=== PATIENT | male | born 1935 | race Caucasian/White ===

== ENCOUNTER → 2016-06-24 | Outpatient (CLI) | payer BC ==
[~2016-06-24] MED LIST: ASPI-232 PO; ATOR-54 PO; BROM0.07 OPL; COLE1TAB5 PO; FURO40TA3 PO; ISOS30TA35 PO; METHPOW PO; METO-452 PO; NTRGSL/4 UT; PRED1SUS3 OPR
--- NOTE | 2016-07-18 13:51 | CODING QUERY MEDICAL NECESSITY ---
SUPPORTING DIAGNOSIS NEEDED A supporting diagnosis is required for the test/procedure performed on this patient in order for us to be reimbursed by the patient's insurance. Please provide a supporting diagnosis for the following test/procedure listed below next to the test name along with your signature. *If there is no additional diagnosis for this patient that would support the following test/procedure please document that below next to the test/procedure. Test(s)/Procedure(s) that require a supporting diagnosis: DOS 06/24 * Bone Density Study DIAGNOSIS: Provider Signature: Date: Thank you Tonja Medel Health Information Management Once completed, please kindly fax back to [phone] For questions please call [phone]
== END | disposition home or self-care (01) ==
LOC: C.MAMM 07:50
PROVIDERS: ATTEND Family Medicine
DX: R29.890 Loss of height (principal); M85.80 Other specified disorders of bone density and structure, unspecified site

== ENCOUNTER → 2016-07-05 | Day surgery (SDC) | payer BC ==
[2016-06-16 08:50] VITALS: Ht 166.4 cm; Wt 100.0 kg
[~2016-07-05] VITALS: Ht 166.4 cm; Wt 100.0 kg
[~2016-07-05] MED LIST changes: +500ML BSS 0.3ML EPI 1:1000PF IRRIG ONE; +AMVISC PLUS 0.8ML SYRINGE INT OCU ONE; +ATROPINE SULFATE 0.1 MG/ML 5ML SYR IV PRN; +BSS FLUSH ONE; +EpHEDrine SULFATE INJ 50 MG/ML AMP IV PRN; +EpINEphrine INJ 1MG/ML AMP 1 MG/ML AMP ONE; +LACTATED RINGER'S 1000ML 500 ML IV SCH; +LIDOCAINE 3.5% OPH GEL PER APPLICATION CHARGE ONE; +LIDOCAINE HCL 1% MPF 2 ML VIAL ONE; +MIDAZOLAM HCL 1 MG/ML 2ML VIAL ONE; +OCUCOAT 1 ML SOLN IO ONE; +PHENYLEPHRINE HCL 10% OP SOLN PER DROP CHARGE OPR SCH; +POVIDONE-IODINE OP SOLN 30 ML BTL ONE; +PROPARACAINE 0.5% OP SOLN PER DROP CHARGE OPR SCH; +TOBRAMYCIN/DEXAMETHASONE OPH OINT PER APPLN CHARGE ONE
[2016-07-05] MEDS: PHENYLEPHRINE HCL 2.5% OP SOLN PER DROP CHARGE OPR SCH ×2 (08:51→08:56)
[2016-07-05] MEDS: TROPICAMIDE 1% OP SOLN PER DROP CHARGE OPR SCH ×2 (08:52→08:57)
[2016-07-05] MEDS: CYCLOPENTOLATE HCL 1% OP SOLN PER DROP CHARGE OPR SCH ×2 (08:53→08:58)
[2016-07-05] MEDS: KETOROLAC 0.5% OP SOLN PER DROP CHARGE OPR SCH ×2 (08:54→08:59)
[2016-07-05] MEDS: GATIFLOXACIN OP SOLN PER DROP CHARGE OPR SCH ×2 (08:55→09:05)
--- NOTE | 2016-07-05 09:32 | History & Physical Bridge - [place] ---
H&P Re-Evaluation Bridge Note: I have examined the patient, reviewed the History & Physical and in the interval since the performance of the History & Physical I have noted the following changes of clinical significance: Diagnosis: Right Cataract Procedure: Right Cataract Removal with Lens Implant No changes noted
--- NOTE | 2016-07-05 10:19 | DIAGNOSTIC IMAGING REPORT ---
SINGLE VIEW CHEST CLINICAL HISTORY: Cough. FINDINGS: An AP, portable, upright chest radiograph is compared to study dated 04/23/2015. The examination is degraded by portable technique and patient rotation. The heart is enlarged. The pulmonary vasculature is noncongested. Bibasilar atelectasis is observed. No airspace consolidation, large pleural effusion, or pneumothorax is seen. The skeletal structures are osteopenic. The bony thorax is grossly intact. IMPRESSION: Cardiomegaly with no acute cardiopulmonary abnormality. Electronically signed by: Memo Antonio M.D. 07/05/2016 10:16 AM Dictated Date/Time: 07/05/2016 10:16 AM
[2016-07-05 10:47] VITALS: TEMP 36.5
--- NOTE | 2016-07-05 10:47 | [facility] Operative Report ---
Operative Report Date of Service Jul 05, 2016. Operative Report 1. PREOPERATIVE DIAGNOSIS: Cataract of the right eye. 2. POSTOPERATIVE DIAGNOSIS: Same. 3. PROCEDURE: Phacoemulsification with intraocular lens implantation of the right eye. SURGEON: Dr. Robby Amin. ANESTHESIA: Topical Lidocaine gel, 1% Non- Preserved intracameral Lidocaine, and monitored intravenous sedation. INDICATIONS FOR THE PROCEDURE: The patient is a 80 - year-old male with a history of cataract of the right eye causing significant visual impairment. The details of the proposed procedure were explained to the patient who asked appropriate questions and following discussion of all risks, benefits and alternatives agreed to have the procedure done. 4. OPERATION AND FINDINGS: DESCRIPTION OF PROCEDURE: After informed consent was obtained, the patient was brought to the Operating Room at the [facility]. The patient was placed in a supine position and then the right eye was prepped and draped in the usual sterile fashion for intraocular surgery. A drop of topical Lidocaine gel was placed in the operative eye. A wire lid speculum was then placed in the fornices. A corneal paracentesis was then created temporally. The Non-Preserved Lidocaine was then instilled into the anterior chamber. The anterior chamber was then pressurized with viscoelastic. A 2.0 mm clear corneal incision was then created temporally. A cystotome was inserted into the anterior chamber and used to create a tear in the anterior lens capsule. This capsular tear was then used to create a small flap and the flap was dragged in a counterclockwise direction in order to create a continuous curvilinear capsulorrhexis. Hydrodissection was accomplished with balanced salt solution. Phacoemulsification of the lens nucleus was then performed in a standard [id number]-[id number] technique. The phaco time was 31 seconds with an average power of 10 %. The remaining cortical material was removed using irrigation aspiration. The capsular bag was then filled with viscoelastic. A Bausch & Lomb MI60L +24.0 diopters lens was then loaded into the injector and injected into the capsular bag. The remaining viscoelastic was removed with the irrigation aspiration handpiece. The wound was hydrated and then checked and found to be watertight. The intraocular pressure was checked and found to be adequate. The wire lid speculum was removed and the patient's face was cleaned and dried. TobraDex ointment was placed in the inferior fornix. The patient was discharged to the Recovery Room having tolerated the procedure well. There were no complications. The patient will be seen tomorrow in the office for follow-up. I attest to the content of the Intraoperative Record and any orders documented therein. Any exceptions are noted below.
--- NOTE | 2016-07-05 10:47 | Discharge Instructions-SurgCtr ---
Discharge Instructions Date of Service Jul 05, 2016. Visit Reason for Visit: Cataract Right Eye Discharge Discharge Diagnosis / Problem: cataract Discharge Goals Goal(s): Improve function Activity Recommendations Activity Limitations: per Instructions/Follow-up section Anesthesia . Post Anesthesia Instructions: If you have had General Anesthesia or IV Sedation: * Do not drive today. * Resume driving when surgeon permits. * Do not make important decisions or sign legal documents today. * Call surgeon for: 1. Temperature elevations greater than 101 degrees F. 2. Uncontrollable pain. 3. Excessive bleeding. 4. Persistent nausea and vomiting. 5. Medication intolerance (nausea, vomiting or rash). * For nausea and vomiting use only clear liquids such as: tea, soda, bouillon until nausea subsides, then gradually increase diet as tolerated. * If you have any concerns or questions, call your surgeon's office. If physician is unavailable and it is an emergency, call 911 or go to the nearest emergency room. . Instructions / Follow-Up Instructions / Follow-Up ACTIVITY RECOMMENDATIONS: * No strenuous lifting, jogging or running for 4 days * No swimming or yard work for 1 week. * Limited bending is permitted, such as putting on shoes. RETURN TO SCHOOL/WORK: No work until seen by physician in office. MEDICATIONS: Resume previous medications unless instructed otherwise by your surgeon. This includes eye drops for glaucoma. Zymaxid/Gatifloxacin (morgan cap) - one drop every 2 hours until bedtime Nevanac/Ilevro/Prolensa/Ketorolac (oliver cap) - one drop every 4 hours until bedtime Prednisolone (white/pink cap, SHAKE WELL) - one drop every 2 hours until bedtime Starting tomorrow - all 3 drops every 4 hours until seen in the office Optive drops - as needed for discomfort SPECIAL CARE INSTRUCTIONS: * Wear eyeshield when sleeping, for four nights. * You may wear your own glasses or sunglasses while awake. * You may read or watch TV * You may shower and wash your face, but be gentle around the eye and pat dry. * Blurry vision and mild irritation are normal. * Call office if pain is more severe or vision becomes dark at . FOLLOW UP VISIT: Follow-up with Dr Amin tomorrow. Diet Recommendations Home Diet: resume previous diet Procedures Procedures Performed: Right Cataract Phacoemulsification With Intraocular Lens Implant Pending Studies Studies pending at discharge: no Medical Emergencies . Who to Call and When: Medical Emergencies: If at any time you feel your situation is an emergency, please call 911 immediately. . Non-Emergent Contact Non-Emergency issues call your: [facility] Pharmacy Technician . . "Provider Documentation" section prepared by Robby Amin.
[2016-07-05 11:15] VITALS: BP 154/80; PULSE 56; O2SAT 98
--- NOTE | 2016-07-05 11:20 | Anesthesia Progress Nt - [facility] ---
Anesthesia Post Op Note Date & Time Jul 05, 2016 at 11:19 Vital Signs Pain Intensity: 0 Vital Signs Past 12 Hours Date Time Temp Pulse Resp B/P Pulse Ox O2 Delivery O2 Flow Rate FiO2 07/05/16 11:15 56 18 154/80 98 Room Air 07/05/16 10:47 36.5 76 16 119/67 98 Room Air 07/05/16 08:48 36.4 72 18 144/80 96 Room Air Notes Mental Status: alert / awake / arousable, participated in evaluation Pt Amnestic to Procedure: Yes Nausea / Vomiting: adequately controlled Pain: adequately controlled Airway Patency, RR, SpO2: stable & adequate BP & HR: stable & adequate Hydration State: stable & adequate Anesthetic Complications: no major complications apparent
== END | disposition home or self-care (01) ==
LOC: X.SURG 08:28
PROVIDERS: ATTEND Ophthalmology
DX: H26.9 Unspecified cataract (principal); H54.7 Unspecified visual loss; I10 Essential (primary) hypertension; M54.16 Radiculopathy, lumbar region; I45.10 Unspecified right bundle-branch block; M19.90 Unspecified osteoarthritis, unspecified site; G47.33 Obstructive sleep apnea (adult) (pediatric); I25.10 Atherosclerotic heart disease of native coronary artery without angina pectoris; E78.5 Hyperlipidemia, unspecified

== ENCOUNTER → 2016-08-02 | Day surgery (SDC) | payer BC ==
[2016-07-14 11:21] VITALS: Ht 166.4 cm; Wt 100.0 kg
[~2016-08-02] VITALS: Ht 166.4 cm; Wt 100.0 kg
[~2016-08-02] MED LIST changes: -ATROPINE SULFATE 0.1 MG/ML 5ML SYR IV PRN; -EpHEDrine SULFATE INJ 50 MG/ML AMP IV PRN; +PHENYLEPHRINE HCL 10% OP SOLN PER DROP CHARGE OPL SCH; -PHENYLEPHRINE HCL 10% OP SOLN PER DROP CHARGE OPR SCH; +PROPARACAINE 0.5% OP SOLN PER DROP CHARGE OPL SCH; -PROPARACAINE 0.5% OP SOLN PER DROP CHARGE OPR SCH
[2016-08-02] MEDS: PHENYLEPHRINE HCL 2.5% OP SOLN PER DROP CHARGE OPL SCH ×2 (09:27→09:37)
[2016-08-02] MEDS: TROPICAMIDE 1% OP SOLN PER DROP CHARGE OPL SCH ×2 (09:28→09:38)
[2016-08-02] MEDS: CYCLOPENTOLATE HCL 1% OP SOLN PER DROP CHARGE OPL SCH ×2 (09:29→09:39)
[2016-08-02] MEDS: KETOROLAC 0.5% OP SOLN PER DROP CHARGE OPL SCH ×2 (09:30→09:40)
[2016-08-02] MEDS: GATIFLOXACIN OP SOLN PER DROP CHARGE OPL SCH ×2 (09:30→09:41)
--- NOTE | 2016-08-02 09:30 | History & Physical Bridge - [place] ---
H&P Re-Evaluation Bridge Note: I have examined the patient, reviewed the History & Physical and in the interval since the performance of the History & Physical I have noted the following changes of clinical significance: No changes noted
--- NOTE | 2016-08-02 10:10 | Discharge Instructions-SurgCtr ---
Discharge Instructions Date of Service August 02, 2016. Visit Reason for Visit: Cataract Left Eye Discharge Discharge Diagnosis / Problem: cataract Discharge Goals Goal(s): Improve function Activity Recommendations Activity Limitations: per Instructions/Follow-up section Anesthesia . Post Anesthesia Instructions: If you have had General Anesthesia or IV Sedation: * Do not drive today. * Resume driving when surgeon permits. * Do not make important decisions or sign legal documents today. * Call surgeon for: 1. Temperature elevations greater than 101 degrees F. 2. Uncontrollable pain. 3. Excessive bleeding. 4. Persistent nausea and vomiting. 5. Medication intolerance (nausea, vomiting or rash). * For nausea and vomiting use only clear liquids such as: tea, soda, bouillon until nausea subsides, then gradually increase diet as tolerated. * If you have any concerns or questions, call your surgeon's office. If physician is unavailable and it is an emergency, call 911 or go to the nearest emergency room. . Instructions / Follow-Up Instructions / Follow-Up ACTIVITY RECOMMENDATIONS: * No strenuous lifting, jogging or running for 4 days * No swimming or yard work for 1 week. * Limited bending is permitted, such as putting on shoes. RETURN TO SCHOOL/WORK: No work until seen by physician in office. MEDICATIONS: Resume previous medications unless instructed otherwise by your surgeon. This includes eye drops for glaucoma. Zymaxid/Gatifloxacin (morgan cap) - one drop every 2 hours until bedtime Nevanac/Ilevro/Prolensa/Ketorolac (oliver cap) - one drop every 4 hours until bedtime Prednisolone (white/pink cap, SHAKE WELL) - one drop every 2 hours until bedtime Starting tomorrow - all 3 drops every 4 hours until seen in the office Optive drops - as needed for discomfort SPECIAL CARE INSTRUCTIONS: * Wear eyeshield when sleeping, for four nights. * You may wear your own glasses or sunglasses while awake. * You may read or watch TV * You may shower and wash your face, but be gentle around the eye and pat dry. * Blurry vision and mild irritation are normal. * Call office if pain is more severe or vision becomes dark at . FOLLOW UP VISIT: Follow-up with Dr Amin tomorrow. Diet Recommendations Home Diet: resume previous diet Procedures Procedures Performed: Left Cataract Phacoemulsification With Intraocular Lens Implant Pending Studies Studies pending at discharge: no Medical Emergencies . Who to Call and When: Medical Emergencies: If at any time you feel your situation is an emergency, please call 911 immediately. . Non-Emergent Contact Non-Emergency issues call your: Emergency Medicine Nurse Practitioner . . "Provider Documentation" section prepared by Robby Amin. .
--- NOTE | 2016-08-02 10:10 | [facility] Operative Report ---
Operative Report Date of Service August 02, 2016. Operative Report 1. PREOPERATIVE DIAGNOSIS: Cataract of the left eye. 2. POSTOPERATIVE DIAGNOSIS: Same. 3. PROCEDURE: Phacoemulsification with intraocular lens implantation of the left eye. SURGEON: Dr. Robby Amin. ANESTHESIA: Topical Lidocaine gel, 1% Non- Preserved intracameral Lidocaine, and monitored intravenous sedation. INDICATIONS FOR THE PROCEDURE: The patient is a 80 - year-old male with a history of cataract of the left eye causing significant visual impairment. The details of the proposed procedure were explained to the patient who asked appropriate questions and following discussion of all risks, benefits and alternatives agreed to have the procedure done. 4. OPERATION AND FINDINGS: DESCRIPTION OF PROCEDURE: After informed consent was obtained, the patient was brought to the Operating Room at the [facility]. The patient was placed in a supine position and then the left eye was prepped and draped in the usual sterile fashion for intraocular surgery. A drop of topical Lidocaine gel was placed in the operative eye. A wire lid speculum was then placed in the fornices. A corneal paracentesis was then created temporally. The Non-Preserved Lidocaine was then instilled into the anterior chamber. The anterior chamber was then pressurized with viscoelastic. A 2.0 mm clear corneal incision was then created temporally. A cystotome was inserted into the anterior chamber and used to create a tear in the anterior lens capsule. This capsular tear was then used to create a small flap and the flap was dragged in a counterclockwise direction in order to create a continuous curvilinear capsulorrhexis. Hydrodissection was accomplished with balanced salt solution. Phacoemulsification of the lens nucleus was then performed in a standard [id number]-nai-melokzj technique. The phaco time was 26 seconds with an average power of 15 %. The remaining cortical material was removed using irrigation aspiration. The capsular bag was then filled with viscoelastic. A Bausch & Lomb MI60L +22.5 diopters lens was then loaded into the injector and injected into the capsular bag. The remaining viscoelastic was removed with the irrigation aspiration handpiece. The wound was hydrated and then checked and found to be watertight. The intraocular pressure was checked and found to be adequate. The wire lid speculum was removed and the patient's face was cleaned and dried. TobraDex ointment was placed in the inferior fornix. The patient was discharged to the Recovery Room having tolerated the procedure well. There were no complications. The patient will be seen tomorrow in the office for follow-up. I attest to the content of the Intraoperative Record and any orders documented therein. Any exceptions are noted below.
[2016-08-02 10:11] VITALS: TEMP 36.4
--- NOTE | 2016-08-02 10:26 | Anesthesia Progress Nt - [facility] ---
Anesthesia Post Op Note Date & Time August 02, 2016 at 10:26 Vital Signs Pain Intensity: 0 Vital Signs Past 12 Hours Date Time Temp Pulse Resp B/P Pulse Ox O2 Delivery O2 Flow Rate FiO2 08/02/16 10:11 36.4 57 16 140/79 97 Room Air 08/02/16 09:07 36.5 67 16 150/72 97 Room Air Notes Mental Status: alert / awake / arousable, participated in evaluation Pt Amnestic to Procedure: No (recall as expected) Nausea / Vomiting: adequately controlled Pain: adequately controlled Airway Patency, RR, SpO2: stable & adequate BP & HR: stable & adequate Hydration State: stable & adequate Anesthetic Complications: no major complications apparent Pt doing well.
[2016-08-02 10:35] VITALS: BP 140/70; PULSE 58; O2SAT 96
== END | disposition home or self-care (01) ==
LOC: X.SURG 08:37
PROVIDERS: ATTEND Ophthalmology
DX: H26.9 Unspecified cataract (principal); G47.33 Obstructive sleep apnea (adult) (pediatric); H91.90 Unspecified hearing loss, unspecified ear

== ENCOUNTER 2021-12-17 00:43 | Observation (INO) ==
[2021-12-17 01:13] LABS: Basophils # (auto) 0.06 K/uL (0-0.2); Basophils % (auto) 0.8 %; Eosinophils # (auto) 0.22 K/uL (0-0.50); Eosinophils % (auto) 2.9 %; Hematocrit (blood only) 40.2 % (40.1-51.0); Immature Granulocytes # (auto) 0.02 K/uL (0.00-0.02); Immature Granulocytes % (auto) 0.3 %; Lymphocytes # (auto) 2.74 K/uL (1.2-3.4); Lymphocytes % (auto) 36.5 %; Mean Corpuscular Hemoglobin 30.9 pg (25.0-34.0); Mean Corpuscular Hgb Conc 32.3 g/dL (32.0-36.0); Mean Corpuscular Volume 95.5 fL (80.0-100.0); Monocytes # (auto) 0.64 K/uL (0.24-0.82); Monocytes % (auto) 8.5 %; Neutrophils # (auto) 3.82 K/uL (1.4-6.5); Platelet Count 200 K/uL (130-400); RDW Coefficient of Variation 13.4 % (11.5-14.5); RDW Standard Deviation 47.3 fL (36.4-46.3); Red Blood Count 4.21 M/uL (4.63-6.08)
--- NOTE | 2021-12-17 01:27 | Emergency Department Note ---
History of Present Illness General Chief complaint: Chest Pain Stated complaint: CHEST PAIN - SUDDEN ONSET; DIZZINESS Time Seen by Provider: 12/17/21 00:56 History of Present Illness This 86-year-old with prior heart disease presents to the ER complaining of chest pain that is now resolved Location: Chest Quality: Discomfort Severity: Moderate Duration: Tonight Timing: Tonight Context: Patient was concerned and came in Modifying factors: better with asa; worse with nothing Patient states he feels better now. He had a heart attack greater than 30 years ago. Patient states has had intermittent dizziness for quite some time. None currently. Patient denies dyspnea, radiating pain, abdominal pain, fever, chills, numbness, tingling, localized weakness. He is extremely hard of hearing. Home Medications Medication Instructions Recorded Confirmed Type atorvastatin 10 mg tablet 10 mg PO QAM 09/16/19 07/27/21 History levothyroxine 88 mcg capsule 88 mcg PO DAILY 04/13/21 07/27/21 History aspirin 81 mg tablet,delayed 81 mg PO QAM 06/25/21 07/27/21 History release (Tracie Low Dose Aspirin) propranolol 60 mg capsule,24 60 mg PO DAILY 06/25/21 07/27/21 History hr,extended release pantoprazole 40 mg tablet,delayed 40 mg PO DAILY #30 tabs 07/13/21 07/27/21 Rx release Allergies Allergy/AdvReac Type Severity Reaction Status Date / Time atorvastatin Allergy Intermediate BOWEL Verified 07/27/21 09:33 LEAKAGE egg AdvReac Mild DIARRHEA Verified 07/27/21 09:33 monosodium glutamate AdvReac Mild DIARRHEA Verified 07/27/21 09:33 olive oil AdvReac Mild DIARRHEA Verified 07/27/21 09:33 Past Med/Surg History Medical History (Updated 12/17/21 @ 03:24 by Marielena Henao PA-C) Diverticulosis of colon without diverticulitis hx of, ruptured bowel Esophageal reflux Hearing deficit History of ASCVD Hyperlipidemia Hypertension Hypertrophy (benign) of 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 Clifford Osteoarthritis Sinus drainage Sleep apnea does not use CPAP as ordered Surgical History Hip joint replacement status right hip History of bilateral cataract extraction History of cardiac cath 2009 @ [facility] [place], no stents History of colonoscopy with polypectomy History of colostomy reversal 1986 History of esophagogastroduodenoscopy (EGD) History of hernia repair umbilical History of tonsillectomy and adenoidectomy History of tooth extraction all teeth removed S/P cholecystectomy Status post partial colectomy with colostomy Family History Father No significant family history Mother No significant family history History of anesthesia reaction difficulty waking Family/Other Family history of esophageal cancer cousin Denies family history of Clotting disorder Social History Smoking Status: Former smoker Second Hand Exposure: Yes (mom smoked); Hx Alcohol Use: Yes Alcohol type: wine Hx Substance Use: No Preferred Language: Pashto Communication Ability: Effective Firewall Administrator Required: No Beliefs That Will Affect Care: None marital status: Current Living Situation: Spouse current occupational status: retired Feels Safe at Home: Yes Assistive Devices: Cane, Denture - Upper, Denture - Lower, Glasses and Hearing Aid - Bilateral Review of Systems A total of 10 systems reviewed and were otherwise negative Physical Exam Vital Signs Vital Signs - 24 hr 12/17/21 01:00 12/17/21 01:00 12/17/21 01:00 Temperature 36.5 C Temperature Source Oral Pulse Rate 77 Pulse Rate from SpO2 Sensor Respiratory Rate 18 Blood Pressure 119/64 Blood Pressure Mean 82 Pulse Oximetry 99 99 99 Oxygen Delivery Method Room Air Room Air Room Air Sepsis Recent Fever Within 48 Hours No Sepsis New/Unexplained Change in Mental Status No Sepsis Action Taken by Nursing No Action Required 12/17/21 01:30 Temperature Temperature Source Pulse Rate 66 Pulse Rate from SpO2 Sensor 66 Respiratory Rate 16 Blood Pressure 112/55 L Blood Pressure Mean 74 Pulse Oximetry 97 Oxygen Delivery Method Sepsis Recent Fever Within 48 Hours Sepsis New/Unexplained Change in Mental Status Sepsis Action Taken by Nursing VITALS: Vitals are noted on the nurse's note and reviewed by myself. Vital signs stable. GENERAL: Pleasant male watching TV, in no acute distress, nondiaphoretic, well- developed well-nourished. SKIN: The skin was without rashes, erythema, edema, or bruising. There is no tenting of the skin. Capillary reflex less than 2 seconds. HEAD: Normocephalic atraumatic. EARS: External auditory canals clear, EYES: Pupils equal round and reactive to light and accommodation. Conjunctivae without injection, sclerae without icterus. Extraocular movements intact. NOSE: Patent, turbinates without inflammation or discharge. MOUTH: Mucous membranes moist. Pharynx without erythema or exudate. Uvula midline. Airway patent. Tongue does not deviate. NECK: Supple without nuchal rigidity. No lymphadenopathy. No thyromegaly. Cervical spine is nontender. No JVD. HEART: Regular rate and rhythm LUNGS: Clear to auscultation bilaterally without wheezes, rales or rhonchi. No retractions or accessory muscle use. ABDOMEN: Positive bowel sounds x 4. Normal tympanic percussion. Soft, nontender, without masses or organomegaly. Padron sign negative. No guarding or rebound tenderness. No CVA tenderness MUSCULOSKELETAL: No muscle atrophy, erythema, noted. NEURO: Patient was alert and oriented to person place and time. Normal s ensation to light and sharp touch. No focal neurological deficits. Medical Decision Making Medical Records Attestation: I reviewed the patient's medical records. Home Medications Current Medication List: was personally reviewed by ne Laboratory Data Attestation: I reviewed the patient's lab results. Result diagrams: 12/17/21 00:56 12/17/21 00:56 Lab Results 12/17/21 12/17/21 12/17/21 Range/Units 00:52 00:56 00:56 WBC 7.50 (4.8-10.8) K/ul RBC 4.21 L (4.63-6.08) M/uL Hgb 13.0 L (14.0-18.0) g/dl Hct 40.2 (40.1-51.0) % MCV 95.5 (80.0-100.0) fL MCH 30.9 (25.0-34.0) pg MCHC 32.3 (32.0-36.0) g/dL RDW Std Deviation 47.3 H (36.4-46.3) fL RDW Coeff of Marly 13.4 (11.5-14.5) % Plt Count 200 (130-400) K/uL MPV 10.0 (9.4-12.4) fL Immature Gran % (Auto) 0.3 % Neut % (Auto) 51.0 % Lymph % (Auto) 36.5 % Holt % (Auto) 8.5 % Eos % (Auto) 2.9 % Baso % (Auto) 0.8 % Neut # (Auto) 3.82 (1.4-6.5) K/uL Lymph # (Auto) 2.74 (1.2-3.4) K/uL Holt # (Auto) 0.64 (0.24-0.82) K/uL Eos # (Auto) 0.22 (0-0.50) K/uL Baso # (Auto) 0.06 (0-0.2) K/uL Immature Gran # (Auto) 0.02 (0.00-0.02) K/uL PT 10.6 (9.0-12.0) Seconds INR 1.0 (0.9-1.1) APTT 25.8 (21.0-31.0) Seconds PTT Ratio 0.9 Sodium (136-145) mmol/L Potassium (3.5-5.1) mmol/L Chloride (98-107) mmol/L Carbon Dioxide (21-32) mmol/L Anion Gap (3-11) BUN (6-23) mg/dl Creatinine (0.6-1.4) mg/dl Est Cr Clr Drug Dosing ml/min Est GFR ( Amer) ml/min Est GFR (Non-Af Amer) ml/min BUN/Creatinine Ratio (10-20) Glucose (70-99(Fasting)) mg/dl Calcium (8.5-10.1) mg/dl Total Bilirubin (0.2-1.0) mg/dl AST (13-39) U/L ALT (7-52) U/L Alkaline Phosphatase (34-104) U/L Troponin I High Sens (0-20) pg/ml Total Protein (6.0-8.3) gm/dl Albumin (3.4-5.0) gm/dl Globulin (2.5-4.0) gm/dl Albumin/Globulin Ratio (0.9-2) Lipase (11-82) U/L SARS-CoV-2, RNA, NAAT NEGATIVE (NEGATIVE) 12/17/21 Range/Units 00:56 WBC (4.8-10.8) K/ul RBC (4.63-6.08) M/uL Hgb (14.0-18.0) g/dl Hct (40.1-51.0) % MCV (80.0-100.0) fL MCH (25.0-34.0) pg MCHC (32.0-36.0) g/dL RDW Std Deviation (36.4-46.3) fL RDW Coeff of Marly (11.5-14.5) % Plt Count (130-400) K/uL MPV (9.4-12.4) fL Immature Gran % (Auto) % Neut % (Auto) % Lymph % (Auto) % Holt % (Auto) % Eos % (Auto) % Baso % (Auto) % Neut # (Auto) (1.4-6.5) K/uL Lymph # (Auto) (1.2-3.4) K/uL Holt # (Auto) (0.24-0.82) K/uL Eos # (Auto) (0-0.50) K/uL Baso # (Auto) (0-0.2) K/uL Immature Gran # (Auto) (0.00-0.02) K/uL PT (9.0-12.0) Seconds INR (0.9-1.1) APTT (21.0-31.0) Seconds PTT Ratio Sodium 138 (136-145) mmol/L Potassium 4.5 (3.5-5.1) mmol/L Chloride 106 (98-107) mmol/L Carbon Dioxide 27 (21-32) mmol/L Anion Gap 5 (3-11) BUN 28 H (6-23) mg/dl Creatinine 1.33 (0.6-1.4) mg/dl Est Cr Clr Drug Dosing 42.1 ml/min Est GFR ( Amer) 54.9 ml/min Est GFR (Non-Af Amer) 47.4 ml/min BUN/Creatinine Ratio 21.1 H (10-20) Glucose 108 H (70-99(Fasting)) mg/dl Calcium 9.4 (8.5-10.1) mg/dl Total Bilirubin 0.6 (0.2-1.0) mg/dl AST 23 (13-39) U/L ALT 16 (7-52) U/L Alkaline Phosphatase 94 (34-104) U/L Troponin I High Sens 17.0 (0-20) pg/ml Total Protein 6.6 (6.0-8.3) gm/dl Albumin 3.9 (3.4-5.0) gm/dl Globulin 2.7 (2.5-4.0) gm/dl Albumin/Globulin Ratio 1.4 (0.9-2) Lipase 57 (11-82) U/L SARS-CoV-2, RNA, NAAT (NEGATIVE) Imaging Data Attestation: I personally reviewed and interpreted this imaging study as follows: MDM Narrative Prior records/ancillary studies reviewed. Triage Nursing notes reviewed. Additional history obtained from nursing. The patient's history was concerning for chest pain. Differential diagnosis: Etiologies such as cardiac ischemia, aortic dissection, pulmonary embolism, pneumonia, pneumothorax, musculoskeletal, infections, pericarditis, myocarditis, esophageal rupture, gastrointestinal, as well as others were entertained. Physical examination: As above. ER treatment provided: An order was placed for continuous cardiac monitoring. The monitor shows a rate of 60-100 with a sinus rhythm. EMS gave aspirin On reassessment the patient felt better. Diagnostic interpretation by me: #1 the electrocardiogram was ordered for chest pain EKG: Normal sinus, incomplete left bundle, left axis, rate of 71. Impression normal sinus rhythm with a left axis deviation incomplete left bundle interpreted by myself I think arrhythmia is unlikely. EKG shows normal sinus rhythm with no interval abnormalities such as QT prolongation or WPW. There are no findings to suggest Brugada syndrome. Cardiac monitoring in the emergency department reveals no tachycardic or bradycardic dysrhythmia. Hypertrophic cardiomyopathy was considered but there are no clear historical elements pointing toward this. EKG is not suggestive. The QRS voltage is not extremely large EKG #2 ordered for chest pain EKG: Normal sinus, incomplete left bundle, left axis, rate of 71. Impression normal sinus rhythm with a left axis deviation incomplete left bundle interpreted by myself I think arrhythmia is unlikely. EKG shows normal sinus rhythm with no interval abnormalities such as QT prolongation or WPW. There are no findings to suggest Brugada syndrome. Cardiac monitoring in the emergency department reveals no tachycardic or bradycardic dysrhythmia. Hypertrophic cardiomyopathy was considered but there are no clear historical elements pointing toward this. EKG is not suggestive. The QRS voltage is not extremely large The labs revealed first troponin negative and repeat was slightly higher Imaging studies: Chest x-ray with no acute consolidation, pneumothorax or free air per my interpretation HEART SCORE: Hx: high/mod/low suspicion: 1 ECG: ST depression/nonspecific changes/normal: 1 Age: Greater than 65/45-64/less than 45: 2 Risk factors: (Hypertension, hyperlipidemia, diabetes, coronary disease, tobacco use, cocaine use): 2 Troponin: Greater than 2 times normal limits/1-2 times normal limits/normal: 0 Total: 6 Consultation: A consultation was placed with the hospitalist. The case was discussed and diagnostics were reviewed. The patient was evaluated in the ER for further treatment. Exam and history seem consistent with chest pain with concerns for possible cardiac in etiology. Medicine was consulted. He will be evaluated for possible admission. By the evaluation outlined above emergent etiologies such as aortic dissection, pulmonary embolism, pneumonia, pneumothorax, infections, pericarditis, myocarditis, gastrointestinal, as well as others were deemed relatively unlikely. The pt informed about the findings as listed above. All questions were answered and pleased with the treatment. The chart was completed utilizing [employer] Speech voice recognition software. Grammatical errors, random word insertions, pronoun errors, and incomplete sentences are an occassional consequence of this system due to software limitations, ambient noise, and hardware issues. Any formal questions or concerns about the content, text, or information contained within the body of this dictation should be directly addressed to the physician web production assistant for clarification. Impression & Plan Chest pain Discharge Plan Visit Data Chief Complaint: Chest Pain Stated Complaint: CHEST PAIN - SUDDEN ONSET; DIZZINESS ED Provider: Valdez Bhatia ED Midlevel Provider: Marielena Henao Discharge Problem: Chest pain Patient Disposition: Admitted As Inpatient Condition: Good Forms Stand Alone Forms: My [facility] Prescriptions Prescriptions: No Action levothyroxine 88 mcg capsule 88 mcg PO DAILY pantoprazole 40 mg tablet,delayed release (DR/EC) 40 mg PO DAILY Qty: 30 2RF atorvastatin 10 mg tablet 10 mg PO QAM propranolol 60 mg capsule,extended release 24 hr 60 mg PO DAILY aspirin [Tracie Low Dose Aspirin] 81 mg Tablet,Delayed Release (Dr/Ec) 81 mg PO QAM Referrals Referrals: Jose Juan Matamoros MD [Primary Care Provider] - : Chest pain Qualifiers: Chest pain type: unspecified Qualified Code(s): R07.9 - Chest pain, unspecified
[2021-12-17 01:31] LABS: Partial Thromboplastin Ratio 0.9; Partial Thromboplastin Time 25.8 Seconds (21.0-31.0); Prothrombin Time 10.6 Seconds (9.0-12.0)
[2021-12-17 01:44] LABS: Albumin Globulin Ratio 1.4 (0.9-2); Albumin Level 3.9 gm/dl (3.4-5.0); BUN Creatinine Ratio 21.1 (10-20); Bilirubin,Total 0.6 mg/dl (0.2-1.0); Calcium 9.4 mg/dl (8.5-10.1); Creatinine Clr Calc Pharmacy 42.1 ml/min; Est GFR (African American) 54.9 ml/min; Est GFR (Non-African American) 47.4 ml/min; Globulin 2.7 gm/dl (2.5-4.0); Potassium 4.5 mmol/L (3.5-5.1); Total Protein 6.6 gm/dl (6.0-8.3)
--- NOTE | 2021-12-17 03:15 | History & Physical Report ---
Date of Service December 17, 2021 Assessment & Plan (1) Vertigo: Plan: Episodes of vertigo (room spinning sensation per patient) with today's being the most severe and lasting about 30 minutes. Ddx includes inner ear pathology (most likely BPPV) vs. hypotension (possibly from medication) vs. arrythmia (bradycardia?). - PT ordered with vestibular testing noted in comments - Telemetry - Monitor vital signs for low BP after AM beta-brooke (2) History of ASCVD: Plan: MIs in 1986 & 2009. Patient reports transient, self-limited chest pain this evening, but denies symptoms were similar to prior MIs. Initial troponin negative. EKG appears stable from priors. Low concern for ACS. - Second troponin pending - Echo ordered - If further concern, could consult [facility] cardiology with whom patient eros wells (3) Hypertension: Plan: BP in ER is actually 110/55. - Continue home beta-brooke - Monitor (4) DVT prophylaxis: Plan: SCDs, early ambulation, & discharge FULL CODE - Per patient on admission History of Present Illness Primary Care Provider: Jose Juan Matamoros MD 86yo M w/ hx of CAD who presents with episode of dizziness and transient chest pain at home. Patient reports he has had a few episodes of dizziness over the last few weeks. They have generally been fairly mild and transient in nature (~10-15 minutes). However, this evening, the patient reports about 10pm, he had a transient episode of chest pain. He reports the pain as a mild, sharp pain under the left breast without radiation. It resolved fairly quick (a few minutes). Does not seem to have had any associated symptoms. Sometime soon after, he was sitting at the table, and he had an acute onset episode of vertigo. The patient describes it as dizziness, but he describes it as a "room spinning." He was able to make it to the phone and call his and [facility] staff and was brought to the hospital. He does not have any ameliorating or exacerbating factors. He is not sure if moving his head makes the dizziness better or worse. He notes that he had his levothyroxine increased to 88 mcg not too long ago, but does not know if his TSH has been rechecked. He notes that he wakes up in the morning with plenty of energy, but that by afternoon he is very tired. Allergies Allergy/AdvReac Type Severity Reaction Status Date / Time atorvastatin Allergy Intermediate BOWEL Verified 07/27/21 09:33 LEAKAGE egg AdvReac Mild DIARRHEA Verified 07/27/21 09:33 monosodium glutamate AdvReac Mild DIARRHEA Verified 07/27/21 09:33 olive oil AdvReac Mild DIARRHEA Verified 07/27/21 09:33 Home Medications Medication Instructions Recorded Confirmed Type atorvastatin 10 mg tablet 10 mg PO QAM 09/16/19 07/27/21 History levothyroxine 88 mcg capsule 88 mcg PO DAILY 04/13/21 07/27/21 History aspirin 81 mg tablet,delayed 81 mg PO QAM 06/25/21 07/27/21 History release (Tracie Low Dose Aspirin) propranolol 60 mg capsule,24 60 mg PO DAILY 06/25/21 07/27/21 History hr,extended release pantoprazole 40 mg tablet,delayed 40 mg PO DAILY #30 tabs 07/13/21 07/27/21 Rx release Past Med/Surg History Medical History (Updated 12/17/21 @ 03:11 by Philip Ivory MD) Diverticulosis of colon without diverticulitis hx of, ruptured bowel Esophageal reflux Hearing deficit History of ASCVD Hyperlipidemia Hypertension Hypertrophy (benign) of prostate Old myocardial infarct x2----tx to [facility] [place] had heart cath, no stents--follows with Dr. Clifford Osteoarthritis Sinus drainage Sleep apnea does not use CPAP as ordered Surgical History Hip joint replacement status right hip History of bilateral cataract extraction History of cardiac cath 2009 @ [facility] [place], no stents History of colonoscopy with polypectomy History of colostomy reversal 1986 History of esophagogastroduodenoscopy (EGD) History of hernia repair umbilical History of tonsillectomy and adenoidectomy History of tooth extraction all teeth removed S/P cholecystectomy Status post partial colectomy with colostomy Family History Father No significant family history Mother No significant family history History of anesthesia reaction difficulty waking Family/Other Family history of esophageal cancer cousin Denies family history of Clotting disorder Social History Smoking Status: Former smoker Second Hand Exposure: Yes (mom smoked); Hx Alcohol Use: Yes Alcohol type: wine Hx Substance Use: No Preferred Language: Turkish Communication Ability: Effective Director Institution Required: No Beliefs That Will Affect Care: None marital status: Current Living Situation: Spouse current occupational status: retired Feels Safe at Home: Yes Assistive Devices: Cane, Denture - Upper, Denture - Lower, Glasses and Hearing Aid - Bilateral Review of Systems Review of Systems: All systems reviewed & are unremarkable except as noted in HPI & below Physical Exam Constitutional: WD/WN, vitals as above Eyes: EOM intact bilaterally; no conjunctival abnormality ENMT: external ear and nose normal, oropharynx normal Neck: trachea midline, no thyromegaly normal visual inspection Respiratory: normal respiratory effort, lungs clear to auscultation no respiratory distress Cardiovascular: RRR, no murmur, no edema Gastrointestinal (Abdomen): Inspection/Auscultation: abdomen normal to inspection; abdomen not distended Musculoskeletal: no cyanosis or clubbing, extremities motor strength 5/5 Skin: no rashes, warm and dry Neurologic: moves all extremities and awake Psychiatric: Orientation: alert, oriented to person and cooperative Results & Data Results & Data ([facility]) Vital Signs (Past 12 Hours) Vital Signs Temp Pulse Resp BP Pulse Ox O2 Del Method 12/17/21 01:30 66 16 112/55 L 97 12/17/21 01:00 99 Room Air 12/17/21 01:00 99 Room Air 12/17/21 01:00 36.5 C 77 18 119/64 99 Room Air Code Status & VTE Plan VTE Prophylaxis Plan VTE Prophylaxis will be ordered: Yes PG Care Time/CCT Total # of Minutes Spent Total Time Spent with Patient: Total time spent is greater than 50% in coordination of care (as documented) at patient's floor/unit and/or counseling patient: Coding Level of Care Code INT OBSERVATION CARE 68M LVL 3 Diagnoses Vertigo R42 History of ASCVD Z86.79 Hypertension I10 DVT prophylaxis Z29.9
[2021-12-17] MEDS ORDERED: ONDANSETRON INJ 2 MG/ML 2 ML VIAL IV PRN (05:02)
[2021-12-17] MEDS ORDERED: ACETAMINOPHEN 325 MG TAB PO PRN (05:02)
[2021-12-17] MEDS: LEVOTHYROXINE SODIUM 88 MCG TABLET PO SCH (06:24)
--- NOTE | 2021-12-17 07:29 | XRay Report ---
XR chest 1V portable CLINICAL HISTORY: Atypical chest pain. COMPARISON STUDY: Chest radiograph June 25, 2021. FINDINGS: No pneumothorax or pleural effusion is present. Cardiomegaly is unchanged. Mediastinal cont ours are stable. Lower lung interstitial thickening remains unchanged. There is no consolidation to s uggest pneumonia. No radiographic evidence for overt pulmonary edema. The appearance of the chest is unchanged. IMPRESSION: No acute cardiopulmonary findings. No change in appearance of the chest. ACT 112: Negative or not required by law. Electronically signed by: Paul Larios M.D. 12/17/2021 7:27 AM
--- NOTE | 2021-12-17 07:54 | Hospitalist Progress Note ---
Date of Service December 17, 2021 Assessment & Plan (1) Vertigo: Plan: Dipesh Sotomayor is a 86 y/o male who presented to the ER after having an episode of dizziness and transient chest pain. He was at home on 12/16 when he became dizzy and felt that the room was spinning. He also had some mild pain under his left breast which he described as sharp and lasted for about 10 minutes. Patient lives at the [facility] with his . Planning towards discharge back to the [facility] tomorrow. Vertigo -PT ordered, requesting vestibular testing -Patient has noted occasional dizziness with walking since arrival, but not at the severity prior to admission. -Patient notes concern for Lyme disease, states he frequently walks outside in the [place] and has had Lymes in the past. will get lyme test. -if vertigo persists - consider brain imaging CAD -Initial troponin 17.0 --> 17.4 -EKG appears stable from priors -Telemetry: has been sinus rhythm, occasional bradycardia at high 50's -Follows with [facility] -Had 2 prior RI's- in 1986, 2009 -Echo ordered, awaiting results HTN -BP in ER was 110/55 -Takes beta brooke at home (propranolol 60mg), will continue home dose -Had some episodes of systolic hypertension, will continue monitoring vitals Hypothyroidism -TSH today was 1.314 -Currently taking 88mcg levothyroxine Diet: Heart healthy DVT Prophylaxis: SCD's Code: Full Code (2) History of ASCVD: (3) Hypertension: (4) DVT prophylaxis: Admission and Anticipated Discharge Date Admission Date: December 17, 2021 Supervising Physician Co-Signing Physician Notes Resident Physician Supervision Note: I independently interviewed and examined the patient and verified the stuart history and physical, reviewed labs and image studies and agree with resident findings and care plan. Subjective Dipesh Sotomayor is a 86 y/o male who presented to the ER after having an episode of dizziness and transient chest pain. His PMH includes HTN, ASCVD, hypothyroidism, sleep apnea, OA, diverticulosis with ruptured bowel, and esophageal reflux. He was at home on 12/16 when he became dizzy and felt that the room was spinning, this episode lasted around 30 minutes. He also had some mild pain under his left breast which he described as sharp and lasted for about 10 minutes. Patient lives at the [facility] with his , who is currently at the [facility] for rehab following a hospital admission. Today he states he is not dizzy at rest and is resting comfortably in bed. Denies any discomfort, does inquire about whether he needs a Lyme disease test. He denies any palpitations, headache, shortness of breath, or current chest pain. Review of Systems Review of Systems: As per HPI Physical Exam Constitutional: WD/WN, vitals as above Neck: normal visual inspection Respiratory: normal respiratory effort, lungs clear to auscultation Cardiovascular: RRR, no murmur, no edema Gastrointestinal (Abdomen): normal bowel sounds, soft, nontender, no hepatosplenomegaly Psychiatric: A+Ox3, euthymic affect Results & Data Results & Data ([facility]) Vital Signs (Past 12 Hours) Vital Signs Temp Pulse Pulse Resp BP BP Pulse Ox 12/17/21 06:19 36.6 C 60 18 153/76 H 97 12/17/21 04:00 12/17/21 04:00 36.5 C 66 16 160/75 H 98 12/17/21 04:00 61 12/17/21 03:45 56 L 16 118/65 12/17/21 01:30 66 16 112/55 L 97 12/17/21 01:00 99 12/17/21 01:00 99 12/17/21 01:00 36.5 C 77 18 119/64 99 O2 Del Method 12/17/21 06:19 Room Air 12/17/21 04:00 Room Air 12/17/21 04:00 Room Air 12/17/21 04:00 12/17/21 03:45 Room Air 12/17/21 01:30 12/17/21 01:00 Room Air 12/17/21 01:00 Room Air 12/17/21 01:00 Room Air Resident Activity Tracking Resident Involvement: Resident Care Provided Care Provided: Adult Hospital Medicine
[2021-12-17] MEDS: ASPIRIN 81 MG ECTAB PO SCH (09:23)
[2021-12-17] MEDS: PROPRANOLOL HCL 60 MG LA CAP PO SCH (09:24)
[2021-12-17] MEDS: PANTOprazole 40 MG TAB PO SCH (09:24)
[2021-12-17] MEDS: ATORVASTATIN 10 MG TAB PO SCH (09:24)
--- NOTE | 2021-12-17 14:13 | Electrocardiogram Report ---
Test Reason : Blood Pressure : / mmHG Vent. Rate : 071 BPM Atrial Rate : 071 BPM P-R Int : 158 ms QRS Dur : 122 ms QT Int : 418 ms P-R-T Axes : 014 -39 011 degrees QTc Int : 454 ms Sinus rhythm with Premature atrial complexes Left axis deviation Septal infarct , age undetermined Abnormal ECG When compared with ECG of 16-SEP-2019 19:56, Premature atrial complexes are now Present Septal infarct is now Present Confirmed by Josemanuel Aguilar ([id number]) on 12/17/2021 2:13:26 PM Referred By: REFERRED SELF Confirmed By:Josemanuel Aguilar
--- NOTE | 2021-12-17 14:14 | Electrocardiogram Report ---
Test Reason : Blood Pressure : / mmHG Vent. Rate : 066 BPM Atrial Rate : 066 BPM P-R Int : 160 ms QRS Dur : 120 ms QT Int : 424 ms P-R-T Axes : 011 -40 -02 degrees QTc Int : 444 ms Poor data quality, interpretation may be adversely affected Sinus rhythm with occasional Premature ventricular complexes Left axis deviation Low voltage QRS Cannot rule out Anterior infarct (cited on or before 17-DEC-2021) Abnormal ECG When compared with ECG of 17-DEC-2021 00:47, (unconfirmed) Premature ventricular complexes are now Present Premature atrial complexes are no longer Present Confirmed by Josemanuel Aguilar ([id number]) on 12/17/2021 2:14:24 PM Referred By: REFERRED SELF Confirmed By:Josemanuel Aguilar
--- NOTE | 2021-12-17 14:20 | Electrocardiogram Report ---
Test Reason : Blood Pressure : / mmHG Vent. Rate : 062 BPM Atrial Rate : 062 BPM P-R Int : 170 ms QRS Dur : 122 ms QT Int : 444 ms P-R-T Axes : 022 -45 -01 degrees QTc Int : 450 ms Sinus rhythm with occasional Premature ventricular complexes Left anterior fascicular block Abnormal ECG When compared with ECG of 17-DEC-2021 01:18, (unconfirmed) Nonspecific T wave abnormality no longer evident in Anterior leads Confirmed by Josemanuel Aguilar ([id number]) on 12/17/2021 2:19:53 PM Referred By: REFERRED SELF Confirmed By:Josemanuel Aguilar
[2021-12-17 19:59] LABS: Lyme Ab IgG w/WB Rflx Negative (Negative); Lyme Ab IgM w/WB Rflx Negative (Negative)
[2021-12-18 05:55] LABS: Hematocrit (blood only) 40.6 % (40.1-51.0); Hemoglobin 13.2 g/dl (14.0-18.0); Mean Corpuscular Hemoglobin 30.8 pg (25.0-34.0); Mean Corpuscular Hgb Conc 32.5 g/dL (32.0-36.0); Mean Corpuscular Volume 94.9 fL (80.0-100.0); Mean Platelet Volume 10.2 fL (9.4-12.4); Platelet Count 179 K/uL (130-400); RDW Coefficient of Variation 13.3 % (11.5-14.5); RDW Standard Deviation 46.5 fL (36.4-46.3); Red Blood Count 4.28 M/uL (4.63-6.08); White Blood Count 7.32 K/ul (4.8-10.8)
[2021-12-18] MEDS: LEVOTHYROXINE SODIUM 88 MCG TABLET PO SCH (06:06)
[2021-12-18 06:25] LABS: BUN Creatinine Ratio 20.5 (10-20); Calcium 9.2 mg/dl (8.5-10.1); Creatinine Clr Calc Pharmacy 45.2 ml/min; Est GFR (Non-African American) 52.6 ml/min; Potassium 4.6 mmol/L (3.5-5.1)
[2021-12-18] MEDS: ATORVASTATIN 10 MG TAB PO SCH (08:30)
[2021-12-18] MEDS: ASPIRIN 81 MG ECTAB PO SCH (08:30)
[2021-12-18] MEDS: PANTOprazole 40 MG TAB PO SCH (08:30)
[2021-12-18] MEDS: PROPRANOLOL HCL 60 MG LA CAP PO SCH (08:31)
--- NOTE | 2021-12-18 10:49 | Discharge Summary ---
Date of Service December 18, 2021 Admission HPI Per Admitting Provider 86yo M w/ hx of CAD who presents with episode of dizziness and transient chest pain at home. Patient reports he has had a few episodes of dizziness over the last few weeks. They have generally been fairly mild and transient in nature (~10-15 minutes). However, this evening, the patient reports about 10pm, he had a transient episode of chest pain. He reports the pain as a mild, sharp pain under the left breast without radiation. It resolved fairly quick (a few minutes). Does not seem to have had any associated symptoms. Sometime soon after, he was sitting at the table, and he had an acute onset episode of vertigo. The patient describes it as dizziness, but he describes it as a "room spinning." He was able to make it to the phone and call his and [facility] staff and was brought to the hospital. He does not have any ameliorating or exacerbating factors. He is not sure if moving his head makes the dizziness better or worse. He notes that he had his levothyroxine increased to 88 mcg not too long ago, but does not know if his TSH has been rechecked. He notes that he wakes up in the morning with plenty of energy, but that by afternoon he is very tired. Admission Exam Per Admitting Provider Constitutional: WD/WN, vitals as above Eyes: EOM intact bilaterally; no conjunctival abnormality ENMT: external ear and nose normal, oropharynx normal Neck: trachea midline, no thyromegaly normal visual inspection Respiratory: normal respiratory effort, lungs clear to auscultation no respiratory distress Cardiovascular: RRR, no murmur, no edema Gastrointestinal (Abdomen): Inspection/Auscultation: abdomen normal to inspection; abdomen not distended Musculoskeletal: no cyanosis or clubbing, extremities motor strength 5/5 Skin: no rashes, warm and dry Neurologic: moves all extremities and awake Psychiatric: Orientation: alert, oriented to person and cooperativ Principal Diagnosis Dizziness Discharge Exam Constitutional WD/WN, vitals as above Neck normal visual inspection Respiratory normal respiratory effort, lungs clear to auscultation Cardiovascular RRR, no murmur, no edema Gastrointestinal (Abdomen) normal bowel sounds, soft, nontender, no hepatosplenomegaly Psychiatric A+Ox3, euthymic affect Discharge Data Allergies Allergy/AdvReac Type Severity Reaction Status Date / Time egg AdvReac Mild DIARRHEA Verified 07/27/21 09:33 monosodium glutamate AdvReac Mild DIARRHEA Verified 07/27/21 09:33 olive oil AdvReac Mild DIARRHEA Verified 07/27/21 09:33 Consultations 12/17/21 02:14 ED Decision to Admit Stat Ordered Studies Chest X-Ray 12/17/21 01:00 XR chest 1V portable CLINICAL HISTORY: Atypical chest pain. COMPARISON STUDY: Chest radiograph June 25, 2021. FINDINGS: No pneumothorax or pleural effusion is present. Cardiomegaly is unchanged. Mediastinal contours are stable. Lower lung interstitial thickening remains unchanged. There is no consolidation to suggest pneumonia. No radiog raphic evidence for overt pulmonary edema. The appearance of the chest is unchanged. IMPRESSION: No acute cardiopulmonary findings. No change in appearance of the chest. ACT 112: Negative or not required by law. Electronically signed by: Paul Larios M.D. 12/17/2021 7:27 AM Hospital Course (1) Vertigo: Dipesh Sotomayor is a 86 y/o male who presented to the ER after having an episode of dizziness and transient chest pain. He was at home on 12/16 when he became dizzy and felt that the room was spinning. He also had some mild pain under his left breast which he described as sharp and lasted for about 10 minutes. [facility] . Planning on returning to [place] today (12/18). Vertigo -Patient has noted occasional dizziness with walking since arrival, but not at the severity prior to admission. -Patient notes concern for Lyme disease, states he frequently walks outside in the [place] and has had Lymes in the past: Lyme test was negative -Symptoms improved. -PT ordered, vestibular testing inconclusive due to patient not having symptoms at time of evaluation. Orthostatic blood pressure stable. Recommending home PT and use of rolling walker at home. CAD -Initial troponin 17.0 --> 17.4 -EKG appears stable from priors -Has had no chest pain during admission -Telemetry: has been sinus rhythm, occasional bradycardia at high 50's -Follows with [facility] -Had 2 prior DC's- in 1986, 2009 -Echo completed: LVEF 50-55% HTN -BP in ER was 110/55, -Takes beta brooke at home (propranolol 60mg), will continue home dose -Had some episodes of systolic hypertension, mainly stayed around 140s/70s Hypothyroidism -TSH was 1.314 -Currently taking 88mcg levothyroxine Patient is instructed to follow up with his PCP within 1-2 weeks of discharge. (2) History of ASCVD: (3) Hypertension: (4) DVT prophylaxis: Total Time Total Time Spent Total Time Spent (In Minutes): . Discharge Plan Discharge Items Patient Disposition: Home - Home Health Services Reason For Visit: DIZZINESS, CHEST PAIN Discharge Diagnosis: Dizziness Condition on Discharge: Good Activity: Per Instructions section Non-emergency contact: Primary Care Provider Call non-emergency contact if: your symptoms worsen Follow-up/Referrals: Jose Juan Matamoros MD [Primary Care Provider] - Diet: Heart Healthy Addtl Attending Provider Instructions: Mr. Landon was admitted to the hospital for observation after presenting with dizziness/room spinning and an episode of mild, left sided chest pain. Dizziness +We monitored your heart while you were in the hospital, during that time your heart remained in a normal rhythm. This reassured us that your heart was not likely going into an arrhythmia to cause your dizziness. +Physical therapy did an evaluation with you to see how we can help you stay safe at home. They monitored your blood pressure while moving from sitting to standing and it did not drop low which is good. They also attempted some tests to look for the cause of your dizziness, but it was inconclusive because you were not dizzy at that time. Based on their evaluation, we feel it would be best if you receive home physical therapy when you return to [place]. They also recommend that you use a rolling walker to keep you steady at home. 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 Matamoros, within 1-2 weeks for an appointment. Pending Studies at Discharge: No Stand-Alone Forms: My [facility] MediCard, Smoking Cessation Medications and DC Order Prescriptions: Continued levothyroxine 88 mcg capsule 88 mcg PO DAILY pantoprazole 40 mg tablet,delayed release (DR/EC) 40 mg PO DAILY Qty: 30 2RF atorvastatin 10 mg tablet 10 mg PO QAM propranolol 60 mg capsule,extended release 24 hr 60 mg PO DAILY aspirin [Tracie Low Dose Aspirin] 81 mg Tablet,Delayed Release (Dr/Ec) 81 mg PO QAM Discharge Orders: Discharge Order (Routine); Ordered 12/18/21 Ordered By: Andressa Quintero/Other Patient Handouts: Vertigo Disequilibrium Syncope, Vertigo Staying Safe, ED Dizziness, Uncertain Cause Admission Data Admit Date/Time: 12/17/21 03:00 Attending Provider: Marija Kennedy Admit Provider: Philip Ivory Primary Care Provider: Jose Juan Matamoros Other Providers: Philip Ivory ; [facility],Home Healthcare Other Interventions: Discharge Summary Assessment (RN) Last Done: 12/18/21 11:21 Supervising Physician Co-Signing Physician Notes Resident Physician Supervision Note: I independently interviewed and examined the patient and verified the stuart history and physical, reviewed labs and image studies and agree with resident findings and care plan. Resident Activity Tracking Resident Involvement: Resident Care Provided Care Provided: Adult Hospital Medicine
[2021-12-18 11:41] VITALS: BP 125/71; PULSE 78; TEMP 97.7; O2SAT 94
== END 2021-12-18 13:07 | disposition home health service (06) ==
LOC: ED 00:43 → 2W 00:43 → SUATTDRO 03:00 → 2W 03:45
DX: Z79.82 Long term (current) use of aspirin; R42 Dizziness and giddiness; R07.9 Chest pain, unspecified; Z79.899 Other long term (current) drug therapy; I25.2 Old myocardial infarction; Z91.012 Allergy to eggs; E03.9 Hypothyroidism, unspecified; I10 Essential (primary) hypertension; Z87.891 Personal history of nicotine dependence; I25.10 Atherosclerotic heart disease of native coronary artery without angina pectoris; Z88.8 Allergy status to other drugs, medicaments and biological substances